=== PATIENT | male | born 1970 | race Hispanic/Latino ===

== ENCOUNTER 2016-07-22 11:14 | Emergency (ER) | payer BC, SELFPAY | END 2016-07-22 11:50 | disposition home or self-care (01) | LOC: NAV ERS 11:14 | DX: K04.7 Periapical abscess without sinus (principal); K03.81 Cracked tooth | CPT/HCPCS: 99283 ==

== ENCOUNTER 2018-12-15 19:22 | Emergency (ER) | payer SELFPAY ==
[2018-12-15] MEDS ORDERED: Lidocaine 1% (PF) 30 ML VIAL ONE (19:46)
[2018-12-15] MEDS ORDERED: Adacel (T-DAP) 0.5 ML SYRINGE ONE (19:46)
--- NOTE | 2018-12-15 20:08 | RAD ---
EXAM: 3 views of the right hand COMPARISON: None HISTORY: Hand pain after fall with laceration from a metal darlene FINDINGS: 3 views of the right hand shows no evidence of acute fracture or dislocation. No degenerati ve changes are seen. No soft tissue swelling is present. No radiopaque foreign body is seen. IMPRESSION: Unremarkable exam.
[2018-12-15] MEDS ORDERED: Bacitracin 1 PK ONE (20:24)
== END 2018-12-15 20:30 | disposition home or self-care (01) ==
LOC: NAV ERS 19:22
DX: S61.411A Laceration without foreign body of right hand, initial encounter (principal); F17.210 Nicotine dependence, cigarettes, uncomplicated; Z23 Encounter for immunization; W26.8XXA Contact with other sharp object(s), not elsewhere classified, initial encounter
CPT/HCPCS: 12001; 90471; 90715; J2001

== ENCOUNTER 2018-12-25 11:35 | Emergency (ER) | payer SELFPAY | END 2018-12-25 12:00 | disposition home or self-care (01) | LOC: NAV ERS 11:35 | DX: S61.411D Laceration without foreign body of right hand, subsequent encounter (principal); F17.210 Nicotine dependence, cigarettes, uncomplicated | CPT/HCPCS: 99282 ==

== ENCOUNTER 2018-12-29 09:49 | Emergency (ER) | payer SELFPAY | END 2018-12-29 10:02 | disposition home or self-care (01) | LOC: NAV ERS 09:49 | DX: S61.411D Laceration without foreign body of right hand, subsequent encounter (principal); F17.210 Nicotine dependence, cigarettes, uncomplicated; X58.XXXD Exposure to other specified factors, subsequent encounter ==

== ENCOUNTER 2019-02-23 12:43 | Emergency (ER) | payer SELFPAY ==
[2019-02-23 13:03] LABS: Bilirubin Negative (Negative); Blood, Urine Trace (Negative); Clarity Clear (Clear); Glucose, Urine (Dipstick) Negative (Negative); Leukocyte Negative (Negative); Nitrite Negative (Negative); Protein, Urine (Dipstick) Negative (Neg-Trace); Urobilinogen 0.2 mg/dL (Less than 2)
[2019-02-23 13:15] LABS: Bacteria/HPF None Seen HPF (None Seen); RBC/HPF 0-3 HPF (0-3); Squamous Epithelial 0-3 HPF (0-3); WBC/HPF None Seen HPF (0-3)
--- NOTE | 2019-02-23 13:49 | RAD ---
Radiograph abdomen one view: DATE: 02/23/2019 HISTORY: 48-year-old male with generalized abdominal pain FINDINGS: Bowel gas pattern is normal. No evidence of organomegaly. IMPRESSION: Negative
[2019-02-23 14:28] LABS: #Basophils 0.1 thou/uL (0.0-0.2); #Eosinphils 0.1 thou/uL (0.0-0.7); #Lymphocytes 1.3 thou/uL (1.20-3.40); #Monocytes 0.7 thou/uL (0.11-0.59); #Neutrophils 6.4 thou/uL (1.40-6.50); %Basophils 0.6 % (0.0-1.0); %Eosinophils 0.9 % (0.0-10.0); %Lymphocytes 15.2 % (21.0-51.0); %Monocytes 8.4 % (0.0-10.0); %Neutrophils 74.8 % (42.0-75.0); Hemoglobin 16.1 g/dL (14.0-18.0); Mean Corpuscular HGB CONC 32.7 g/dL (32.0-36.0); Mean Corpuscular Hemoglobin 29.4 pg (27.0-31.0); Mean Corpuscular Volume 90.1 fL (78.0-98.0); Mean Platelet Volume 8.4 fL (7.4-10.4); Platelet Count 263 thou/uL (130-400); RBC Distribution Width 12.5 % (11.5-14.5); Red Blood Cell (RBC) Count 5.46 mill/uL (4.70-6.10); White Blood Cell (WBC) Count 8.5 thou/uL (4.8-10.8)
[2019-02-23 14:32] LABS: Anion Gap 14 mmol/L (10-20); BUN (Urea Nitrogen) 13 mg/dL (8.9-20.6); Calc. Creatinine Clearance 0 mL/min (70-130); Calcium 9.3 mg/dL (7.8-10.44); Carbon Dioxide 27 mmol/L (22-29); Chloride 102 mmol/L (98-107); Estimated GFR-MDRD 79; Glucose 111 mg/dL (70-105); Lipase 69 U/L (8-78); Potassium 4.1 mmol/L (3.5-5.1); Sodium 139 mmol/L (136-145)
== END 2019-02-23 15:14 | disposition home or self-care (01) ==
LOC: NAV ERS 12:43
DX: K57.92 Diverticulitis of intestine, part unspecified, without perforation or abscess without bleeding (principal); F17.210 Nicotine dependence, cigarettes, uncomplicated
CPT/HCPCS: 36415; 74018; 80048; 81003; 81015; 83690; 85025

== ENCOUNTER 2019-04-08 12:48 | Emergency (ER) | payer SELFPAY ==
[2019-04-08] MEDS ORDERED: Ketorolac Tromethamine 60 MG/2 ML VIAL ONE (13:50)
[2019-04-08] MEDS ORDERED: Cyclobenzaprine 10 MG TAB ONE (13:50)
== END 2019-04-08 14:20 | disposition home or self-care (01) ==
LOC: NAV ERS 12:48
DX: M54.6 Pain in thoracic spine (principal); F17.210 Nicotine dependence, cigarettes, uncomplicated
CPT/HCPCS: 96372; 99283; J1885

== ENCOUNTER 2019-04-22 12:57 | Emergency (ER) | payer BC, SELFPAY ==
--- NOTE | 2019-04-22 14:11 | CT ---
CT THORACIC SPINE: Date: 04/22/2019 COMPARISON: None. HISTORY: Persistent back pain. TECHNIQUE: Serial axial CT imaging at 5 mm intervals through the thoracic spine without contrast. Co ne and sagittal reformatted imaging. FINDINGS: The assessment for central canal and/or neural foraminal stenosis is limited on routine CT examinatio n. Partially visualized lung parenchyma grossly unremarkable. The bones appear demineralized. Correlation with follow-up bone density scan is suggested. No anterolisthesis or retrolisthesis is noted within the thoracic spine. There is no osseous cause of significant central canal or neural foraminal stenosis within the thorac ic spine. There is an anterior wedge compression fracture of the T8 vertebral body with approximately 50% loss of vertebral body height anteriorly. This is an age-indeterminate fracture, which is new when compare d to 08/25/2015. This certainly could represent an acute/subacute T8 fracture. No additional fracture is noted within the thoracic spine. No worrisome lytic or blastic bone lesion. IMPRESSION: Age-indeterminate, probably acute/subacute anterior wedge compression fracture of T8 with approximate ly 50% loss of vertebral body height anteriorly. POS: [facility]
== END 2019-04-22 14:19 | disposition home or self-care (01) ==
LOC: NAV ERS 12:57
DX: S22.060A Wedge compression fracture of T7-T8 vertebra, initial encounter for closed fracture (principal); F17.210 Nicotine dependence, cigarettes, uncomplicated; X58.XXXA Exposure to other specified factors, initial encounter; Y92.69 Other specified industrial and construction area as the place of occurrence of the external cause
CPT/HCPCS: 72128